=== PATIENT | female | born 1985 | race Caucasian/White ===

== ENCOUNTER 2018-01-14 16:41 | Observation (INO) ==
[2018-01-14 13:46] LABS: Bilirubin,Urine Negative (Negative); Blood,Urine Negative (Negative); Clarity,Urine Clear (Clear); Color,Urine Yellow (Yellow); Glucose,Urine (UA) Normal (Normal); Ketones,Urine Negative (Negative); Leukocyte Esterase,Urine Negative (Negative); Nitrite,Urine Negative (Negative); PH,Urine 6.5 pH Units (5.0-8.0); Protein,Urine Negative (Neg-Trace); Specific Gravity,Urine 1.023 (1.010-1.025); Urobilinogen,Urine Normal (Normal)
[2018-01-14 15:27] LABS: Amphetamine Screen,Urine Negative ng/mL (Cutoff=1000); Barbiturate Screen,Urine Negative ng/mL (Cutoff=200); Benzodiazepines Screen,Urine Negative ng/mL (Cutoff=200); Cannabinoid Screen,Urine Negative ng/mL (Cutoff = 50); Cocaine Screen,Urine Negative ng/mL (Cutoff= 300); Opiate Screen,Urine Negative ng/mL (Cutoff=300); Phencyclidine Screen,Urine Negative ng/mL (Cutoff=25)
--- NOTE | 2018-01-14 15:43 | OB/GYN Progress Note ---
Date of Encounter: 01/14/18 Time of Encounter: 15:40 - Assessment and Plan (1) 33 weeks gestation of Current Visit: Yes Status: Acute FHR 120, Category 1 No contractions Cervical exam closed/thick,firm/high,posterior Urinalysis negative US pending Anticipate discharge home Follow up with routine care and prn POC discussed with Dr. Rowe Subjective - Subjective Interval history: at 33 weeks and 4 days gestation presents to triage with complaints lower back ache, pelvic pressure and sharp pain in lower abdomen around C- section scar that started this morning. States baby moving well, denies dysuria , loss of fluid and vaginal bleeding. Denies LIMA, visual disturbance and epigastric pain. OB history significant for Pre eclampsia with first and PCS for failed induction. Pregnancies #2 and #3 were uncomplicated repeat c- sections. Objective - Exam FHR: category 1 FHR comments: FHR 120 Auscultation: bilateral: normal Abdomen: Present: soft, gravid Uterus: Present: normal. Absent: tenderness Cervical dilation: closed Cervix effacement: thick station: high Comments: Cervix firm and posterior
== END 2018-01-14 19:55 | disposition home or self-care (01) ==
LOC: 1NENULAB
PROVIDERS: ADMIT Advanced Practice Midwife; ATTEND Advanced Practice Midwife